=== PATIENT | male | born 1995 | race Caucasian/White ===

== ENCOUNTER → 2016-12-09 | Outpatient (CLI) | payer MEDICARE, OTHER ==
[2016-12-09 10:04] LABS: Hemoglobin A1C 5.5 % (4.2-6.1)
[2016-12-09 10:16] LABS: ALT 59 U/L (21-72); AST 34 U/L (17-59); Alkaline Phosphatase 74 U/L (38-126); Blood Urea Nitrogen 20 mg/dL (9-20); Calcium 9.7 mg/dL (8.4-10.2); Carbon Dioxide 24 mmol/L (22-30); Cholesterol 196 mg/dL (<200); Glucose 96 mg/dL (74-99); HDL Cholesterol 42 mg/dL (40-60); Non-African American GFR(MDRD) >60 (>60 ml/min/1.73 sqM); Potassium 4.5 mmol/L (3.5-5.1); Sodium 141 mmol/L (137-145); Total Bilirubin 0.4 mg/dL (0.2-1.3); Total Protein 7.5 g/dL (6.3-8.2)
[2016-12-09 10:17] LABS: Anion Gap 13 mmol/L; Chloride 104 mmol/L (98-107)
== END | disposition home or self-care (01) ==
LOC: LABWHC1 08:46
PROVIDERS: ATTEND Internal Medicine
DX: E78.5 Hyperlipidemia, unspecified (principal); Z13.1 Encounter for screening for diabetes mellitus
CPT/HCPCS: 36415; 80053; 80061; 83036

== ENCOUNTER → 2018-12-17 | Outpatient (CLI) | payer MEDICARE, OTHER ==
[2018-12-17 19:21] LABS: ALT 37 U/L (10-49); AST 26 U/L (14-35); African American GFR (CKD) 109.1 (60.0-200.0); Alkaline Phosphatase 77 U/L (41-126); BUN/Creat Ratio 18.18 Ratio (12.00-20.00); Calcium 9.5 mg/dL (8.7-10.3); Carbon Dioxide 24.2 mmol/L (21.6-31.8); Chloride 107 mmol/L (96-109); Glucose 93 mg/dL (70-110); Potassium 4.4 mmol/L (3.5-5.5); Sodium 139 mmol/L (135-145); Total Bilirubin 0.3 mg/dL (0.2-1.2); Total Protein 6.6 g/dL (6.2-8.2)
[2018-12-17 19:22] LABS: Cholesterol 325 mg/dL (0-200)
[2018-12-17 21:38] LABS: Hemoglobin A1C 5.5 % (4.0-6.0)
== END | disposition home or self-care (01) ==
LOC: LABWHC1 12:25
PROVIDERS: ATTEND Internal Medicine
DX: E78.5 Hyperlipidemia, unspecified (principal); E66.9 Obesity, unspecified; Z13.1 Encounter for screening for diabetes mellitus
CPT/HCPCS: 36415; 80053; 80061; 83036; 83721

== ENCOUNTER 2020-04-01 18:58 | Emergency (ER) | payer OTHER, MEDICARE ==
[2020-04-01 19:06] VITALS: BP 135/80; PULSE 83; RESP 18; TEMP 97.7
--- NOTE | 2020-04-01 19:34 | ED ---
General Adult HPI - General Chief complaint: Abdominal Pain Stated complaint: Abd Pain Time Seen by Provider: 04/01/20 19:10 Source: patient, RN notes reviewed, old records reviewed Mode of arrival: ambulatory Limitations: no limitations - History of Present Illness Initial comments: 25-year-old male patient with a history of mild autism to ED for evaluation. 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 Patient reports that today he was bringing a large amount shopping carts back to the receptacle region. In particular he reports that he was pushing them with his anterior abdomen at times. Patient was that he is having some localized discomfort where he was pushing the cart ea rlier today. However he is currently in no acute pain right now. He reports the pain resolved prior to my evaluation. He denies any nausea, vomiting or diarrhea. Systemic: Pt denies fatigue, fever/chills, rash. Pt denies weakness, night sweats, weight loss. Neuro: Pt denies headache, visual disturbances, syncope or pre-syncope. HEENT: Pt denies ocular discharge or irritation, otalgia, rhinorrhea, pharyngitis or notable lymphadenopathy. Cardiopulmonary: Pt denies chest pain, SOB, heart palpitations, dyspnea on exertion. Abdominal/GI: Pt denies abdominal pain, n/v/d. : Pt denies dysuria, burning w/ urination, frequency/urgency. Denies new onset urinary or bowel incontinence. MSK: Pt denies myalgia, loss of strength or function in extremities. Neuro: Pt denies new onset weakness, paresthesias. - Related Data Allergies Allergy/AdvReac Type Severity Reaction Status Date / Time No Known Allergies Allergy Verified 04/01/20 19:06 Review of Systems ROS Statement: Those systems with pertinent positive or pertinent negative responses have been documented in the HPI. ROS Other: All systems not noted in ROS Statement are negative. Past Medical History Past Medical History: Hypertension Additional Past Medical History / Comment(s): autism History of Any Multi-Drug Resistant Organisms: None Reported Past Surgical History: Ear Surgery Past Psychological History: ADD/ADHD, Anxiety, Depression Smoking Status: Current every day smoker Past Alcohol Use History: None Reported Past Drug Use History: None Reported General Exam - General Exam Comments Initial Comments: Constitutional: NAD, AOX3, Pt has pleasant affect. HEENT: NC/AT, trachea midline, neck supple, no lymphadenopathy. External ears appear normal, without discharge. Mucous membranes moist. Eyes PERRLA, EOM intact. There is no scleral icterus. No pallor noted. Cardiopulmonary: RRR, no murmurs, rubs or gallops, no JVD noted. Lungs CTAB in anterior and posterior thompson. No peripheral edema. Abdominal exam: Abdomen soft and non-distended. Abdomen non-tender to palpation in all 4 quadrants. Bowel sounds active in LLQ. No hepatosplenomegaly. No ecchymosis Neuro: CN II-XII grossly intact. No nuchal rigidity. MSK: Full active ROM in upper and lower extremities, 5/5 stregnth. Limitations: no limitations Course Vital Signs 04/01/20 19:02 Temperature 97.7 F Pulse Rate 83 Respiratory 18 Rate Blood Pressure 135/80 O2 Sat by Pulse 99 Oximetry Medical Decision Making - Medical Decision Making 25-year-old male patient ED for abdominal pain after pushing grocery carts. He is currently in no acute distress. Is denying any acute complaint. Abdomen is soft and nontender without any ecchymoses. KUB is negative for acute process. Patient re-evaluated and is in no pain with no complaints. Patient will be discharged with outpatient follow-up with his primary care provider and will return to ED if his pain returns. Case discussed with Dr. Ny. Disposition Clinical Impression: Abdominal pain Disposition: HOME SELF-CARE Condition: Stable Instructions (If sedation given, give patient instructions): Abdominal Pain (ED) Additional Instructions: follow up with PCP tomorrow. Return to ED with any worsening symptoms. Is patient prescribed a controlled substance at d/c from ED?: No Referrals: Moe Encarnacion MD [Primary Care Provider] - 1-2 days
--- NOTE | 2020-04-01 20:02 | XR ---
EXAMINATION TYPE: XR KUB DATE OF EXAM: 04/01/2020 COMPARISON: NONE HISTORY: Abdominal pain TECHNIQUE: 2 views upright FINDINGS: There is no sign of intestinal obstruction or pneumoperitoneum. Fecal pattern is normal. Joanna ng bases are clear. There are no pathologic calcifications. Bony structures are intact. IMPRESSION: Nonacute abdomen.
== END 2020-04-01 20:18 | disposition home or self-care (01) ==
LOC: EC 18:58
DX: R10.9 Unspecified abdominal pain (principal); F17.200 Nicotine dependence, unspecified, uncomplicated
CPT/HCPCS: 74018; 99284

== ENCOUNTER → 2021-07-19 | Outpatient (CLI) | payer MEDICARE, OTHER ==
--- NOTE | 2021-07-19 13:33 | XR ---
EXAMINATION TYPE: XR lumbar spine 2 or 3V DATE OF EXAM: 07/19/2021 CLINICAL HISTORY: Low back pain TECHNIQUE: Frontal and lateral images of the lumbar spine are obtained. COMPARISON: None FINDINGS: There are 5 lumbar type vertebral bodies identified. The lumbar spine shows straightened alignment without evidence of acute fracture or dislocation. Vertebral body heights and disk space he ights are within normal limits. The overlying soft tissue appears unremarkable. IMPRESSION: As above.
--- NOTE | 2021-07-19 13:48 | XR ---
EXAMINATION TYPE: XR Hip Bilateral and AP pelvis DATE OF EXAM: 07/19/2021 COMPARISON: NONE HISTORY: M25.551 TECHNIQUE: A single AP view of the pelvis is obtained. Two views of the bilateral hips are obtained. FINDINGS: There is no acute fracture/dislocation evident in the pelvis. The hip and sacroiliac join ts appear symmetric and unremarkable. The overlying soft tissue appears unremarkable. Two views of bilateral hips hip show no acute fracture or dislocation. No focal lytic or sclerotic l esion seen in the proximal femora. The overlying soft tissue is unremarkable. IMPRESSION: There is no acute fracture or dislocation in the pelvis or bilateral hips
== END | disposition home or self-care (01) ==
LOC: RADXRMAIN 12:45
PROVIDERS: ATTEND Internal Medicine
DX: M25.551 Pain in right hip (principal); M54.50 Low back pain, unspecified
CPT/HCPCS: 72100; 73521

== ENCOUNTER 2023-03-23 15:14 | Emergency (ER) | payer MEDICARE, OTHER ==
[2023-03-23 15:22] VITALS: TEMP 98.9
[2023-03-23] MEDS ORDERED: FAMOTIDINE 20 MG/2 ML VIAL IV STA (15:31)
[2023-03-23] MEDS ORDERED: SODIUM CHLORIDE 0.9% 1,000 ML IV ONE (15:31)
[2023-03-23] MEDS ORDERED: MAG HYDROX/AL HYDROX/SIMETH 30 ML, HYOSCYAMINE ELIXIR 10 ML, LIDOCAINE VISCOUS 2% 10 ML PO STA ×3 (15:31)
--- NOTE | 2023-03-23 15:48 | ED ---
General Adult HPI - General Chief complaint: Abdominal Pain Stated complaint: abd pain Time Seen by Provider: 03/23/23 15:22 Source: patient, RN notes reviewed Mode of arrival: ambulatory Limitations: no limitations - History of Present Illness Initial comments: 28-year-old male with a past medical history significant for autism presents the emergency department with a chief complaint of epigastric pain. Patient reports that he had a Burrito from [employer] at approximately 10 AM. He reports that the burning sensation developed in his epigastric area. She is also complaining of accompanying symptoms of nausea. Denies any vomiting, fev ers, melena, hematochezia. Denies recent alcohol use. Denies history of appendectomy or cholecystectomy. Patient was seen at urgent care prior to arrival recommended he come to the ED for further evaluation. - Related Data Previous Rx's Medication Instructions Recorded Dicyclomine [Bentyl] 20 mg PO TID #30 tablet 03/23/23 Allergies Allergy/AdvReac Type Severity Reaction Status Date / Time No Known Allergies Allergy Verified 03/23/23 15:19 Review of Systems ROS Statement: Those systems with pertinent positive or pertinent negative responses have been documented in the HPI. ROS Other: All systems not noted in ROS Statement are negative. Past Medical History Past Medical History: Hypertension Additional Past Medical History / Comment(s): autism History of Any Multi-Drug Resistant Organisms: None Reported Past Surgical History: Ear Surgery Past Psychological History: ADD/ADHD, Anxiety, Depression Smoking Status: Current every day smoker Past Alcohol Use History: None Reported Past Drug Use History: None Reported General Exam - General Exam Comments Initial Comments: General: Alert, in no acute distress Head: atraumatic normocephalic. Eyes PERRL, EOMI intact, mucous membranes moist Respiratory: Lungs clear to auscultation bilaterally Cardiovascular: Heart rate regular rate and rhythm Abdominal: Soft without guarding or rebound, mild epigastric tenderness. Gutierrez's sign positive. Extremities: Normal inspection with full range of motion and normal capillary refill Neuroogic: alert and oriented 3, CN II-XII intact, able to ambulate with steady gait Skin: warm dry and intact with normal color Limitations: no limitations Course Vital Signs 03/23/23 03/23/23 03/23/23 15:15 16:42 17:56 Temperature 98.9 F 98.9 F Pulse Rate 85 74 73 Respiratory 18 20 18 Rate Blood Pressure 144/92 145/96 129/84 O2 Sat by Pulse 98 98 98 Oximetry - Reevaluation(s) Reevaluation #1: 03/23/23 16:31 Should reevaluated. Patient reports pain is worse after the ultrasound. Additional labs ordered. Medical Decision Making - Medical Decision Making Was pt. sent in by a medical professional or institution (, KRISTA, DEPUTY COURT CLERK, urgent care, hospital, or [facility]...) When possible be specific @ -[No] Did you speak to anyone other than the patient for history (EMS, parent, family, police, friend...)? What history was obtained from this source @ -Mother and Father Did you review nursing and triage notes (agree or disagree)? Why? @ -[I reviewed and agree with nursing and triage notes Were old charts reviewed (outside hosp., previous admission, EMS record, old EKG, old radiological studies, urgent care reports/EKG's, [facility] records)? Report findings @ -[No old charts were reviewed] Differential Diagnosis (chest pain, altered mental status, abdominal pain women, abdominal pain men, vaginal bleeding, weakness, fever, dyspnea, syncope, headache, dizziness, GI bleed, back pain, seizure, CVA, palpatations, mental health, musculoskeletal)? @ -[not applicable] EKG interpreted by me (3pts min.). @ -[As above] X-rays interpreted by me (1pt min.). @ -[None done] CT interpreted by me (1pt min.). @ -[None done] U/S interpreted by me (1pt. min.). @ -[None done] What testing was considered but not performed or refused? (CT, X-rays, U/S, labs)? Why? @ -CTs were considered however patient laboratory studies unremarkable What meds were considered but not given or refused? Why? @ -[None] Did you discuss the management of the patient with other professionals (professionals i.e. KRISTA Lozada, DEPUTY COURT CLERK, lab, RT, psych nurse, manager social responsibility, terrazzo tile setter, teacher, adult parole officer, returned case inspector)? Give summary @ -[No] Was smoking cessation discussed for >3mins.? @ -[No] Was critical care preformed (if so, how long)? @ -[No] Were there social determinants of health that impacted care today? How? (Homelessness, low income, unemployed, alcoholism, drug addiction, transportation, low edu. Level, literacy, decrease access to med. care, residential, rehab)? @ -[No] Was there de-escalation of care discussed even if they declined (Discuss DNR or withdrawal of care, Hospice)? DNR status @ -[No] What co-morbidities impacted this encounter? (DM, HTN, Smoking, COPD, CAD, Cancer, CVA, ARF, Chemo, Hep., AIDS, mental health diagnosis, sleep apnea, morbid obesity)? @ -[None] Was patient admitted / discharged? Hospital course, mention meds given and route, prescriptions, significant lab abnormalities, going to OR and other pertinent info. @ -Discharged. This is a 28-year-old female who presents the emergency department with epigastric pain. Patient mother is to physical exam performed on the ED. Rate regular rate and rhythm, lungs clear to auscultation bilaterally abdomen is soft with mild epigastric tenderness, positive Gutierrez sign. Patient provided Toradol, Zofran, GI cocktail. 1 L IV fluids with symptomatic improvement. She had laboratory studies and imaging performed which were unremarkable. Discussed results in detail with the patient verbalized understanding of questions were addressed. Return precautions discussed at length. Patient provided Zofran and Bentyl upon discharge. Return precautions discussed at length. Patient discharged in stable condition. Case discussed with RANDOLPH Paul who agrees with plan of care Undiagnosed new problem with uncertain prognosis? @ -[No] Drug Therapy requiring intensive monitoring for toxicity (Heparin, Nitro, Insulin, Cardizem)? @ -[No] Were any procedures done? @ -[No] Diagnosis/symptom? @ -Epigastric pain Acute, or Chronic, or Acute on Chronic? @ -Acute Uncomplicated (without systemic symptoms) or Complicated (systemic symptoms)? @ -Uncomplicated Side effects of treatment? @ -[No] Exacerbation, Progression, or Severe Exacerbation? @ -[No] Poses a threat to life or bodily function? How? (Chest pain, USA, VT, pneumonia, PE, COPD, DKA, ARF, appy, cholecystitis, CVA, Diverticulitis, Homicidal, Suicidal, threat to staff... and all critical care pts) @ -Low likelihood - Lab Data Result diagrams: 03/23/23 15:32 03/23/23 15:32 Lab Results 03/23/23 03/23/23 Range/Units 15:32 15:32 WBC 6.9 (3.8-10.6) k/uL RBC 4.97 (4.30-5.90) m/uL Hgb 14.1 (13.0-17.5) gm/dL Hct 42.6 (39.0-53.0) % MCV 85.7 (80.0-100.0) fL MCH 28.4 (25.0-35.0) pg MCHC 33.2 (31.0-37.0) g/dL RDW 12.7 (11.5-15.5) % Plt Count 260 (150-450) k/uL MPV 7.7 Neutrophils % 59 % Lymphocytes % 30 % Monocytes % 8 % Eosinophils % 1 % Basophils % 1 % Neutrophils # 4.0 (1.3-7.7) k/uL Lymphocytes # 2.1 (1.0-4.8) k/uL Monocytes # 0.5 (0-1.0) k/uL Eosinophils # 0.1 (0-0.7) k/uL Basophils # 0.1 (0-0.2) k/uL Sodium 137 (137-145) mmol/L Potassium 4.3 (3.5-5.1) mmol/L Chloride 104 (98-107) mmol/L Carbon Dioxide 23 (22-30) mmol/L Anion Gap 10 mmol/L BUN 14 (9-20) mg/dL Creatinine 1.16 (0.66-1.25) mg/dL Est GFR (CKD-EPI)AfAm >90 (>60 ml/min/1.73 sqM) Est GFR (CKD-EPI)NonAf 86 (>60 ml/min/1.73 sqM) Glucose 91 (74-99) mg/dL Calcium 9.3 (8.4-10.2) mg/dL Total Bilirubin 0.4 (0.2-1.3) mg/dL AST 26 (17-59) U/L ALT 27 (4-49) U/L Alkaline Phosphatase 65 (38-126) U/L Total Protein 6.9 (6.3-8.2) g/dL Albumin 4.1 (3.5-5.0) g/dL Lipase 63 (23-300) U/L Disposition Clinical Impression: Epigastric pain Disposition: HOME SELF-CARE Condition: Stable Additional Instructions: please monitor your symptoms closely. Please return to the nearest emergency department if symptoms worsen or persist Prescriptions: Dicyclomine [Bentyl] 20 mg PO TID #30 tablet Is patient prescribed a controlled substance at d/c from ED?: No Referrals: Akhil White MD [Primary Care Provider] - 1-2 days Time of Disposition: 17:39
[2023-03-23 16:09] LABS: Basophils # (A) 0.1 k/uL (0-0.2); Basophils % (A) 1 %; Eosinophils # (A) 0.1 k/uL (0-0.7); Eosinophils % (A) 1 %; HCT 42.6 % (39.0-53.0); HGB 14.1 gm/dL (13.0-17.5); Lymphocytes # (A) 2.1 k/uL (1.0-4.8); Lymphocytes % (A) 30 %; MCH 28.4 pg (25.0-35.0); MCHC 33.2 g/dL (31.0-37.0); MCV 85.7 fL (80.0-100.0); Mean Platelet Volume 7.7; Monocytes # (A) 0.5 k/uL (0-1.0); Monocytes % (A) 8 %; Neutrophils % (A) 59 %; Platelet Count 260 k/uL (150-450); RBC 4.97 m/uL (4.30-5.90); RDW 12.7 % (11.5-15.5); WBC 6.9 k/uL (3.8-10.6)
--- NOTE | 2023-03-23 16:25 | US ---
EXAMINATION TYPE: US gallbladder DATE OF EXAM: 03/23/2023 COMPARISON: NONE CLINICAL INDICATION: Male, 28 years old with history of RUQ PAIN; pain and nausea limited due to body habitus TECHNIQUE: Multiple sonographic images of the right upper quadrant are obtained. FINDINGS: EXAM MEASUREMENTS: Liver Length: 17 cm Gallbladder Wall: .3 cm CBD: 0.4 cm Right Kidney: 10.7 x 3.9 x 4.2 cm Pancreas: Obscured by bowel gas Liver: Increased attenuation Gallbladder: No stones seen Evidence for sonographic Gutierrez's sign: No CBD: wnl Right Kidney: No hydronephrosis or masses seen IMPRESSION: No evidence for acute right upper quadrant process.
[2023-03-23 16:26] LABS: ALT 27 U/L (4-49); AST 26 U/L (17-59); African American GFR (CKD) >90 (>60 ml/min/1.73 sqM); Albumin 4.1 g/dL (3.5-5.0); Alkaline Phosphatase 65 U/L (38-126); Anion Gap 10 mmol/L; Blood Urea Nitrogen 14 mg/dL (9-20); Calcium 9.3 mg/dL (8.4-10.2); Carbon Dioxide 23 mmol/L (22-30); Chloride 104 mmol/L (98-107); Glucose 91 mg/dL (74-99); Lipase 63 U/L (23-300); Non-African American GFR(CKD) 86 (>60 ml/min/1.73 sqM); Potassium 4.3 mmol/L (3.5-5.1); Sodium 137 mmol/L (137-145); Total Bilirubin 0.4 mg/dL (0.2-1.3); Total Protein 6.9 g/dL (6.3-8.2)
[2023-03-23] MEDS ORDERED: KETOROLAC 15 MG/ML 1 ML VIAL IVP STA (16:31)
[2023-03-23] MEDS ORDERED: ONDANSETRON 4 MG ODT STARTER PACK 2 TAB BTL PO STA (17:39)
[2023-03-23 18:23] VITALS: BP 129/84; PULSE 73; RESP 18
== END 2023-03-23 17:59 | disposition home or self-care (01) ==
LOC: EC 15:14
DX: R10.13 Epigastric pain (principal); I10 Essential (primary) hypertension; F17.200 Nicotine dependence, unspecified, uncomplicated; Z86.59 Personal history of other mental and behavioral disorders
CPT/HCPCS: 36415; 80053; 83690; 85025; 76705; 99284; 96374; 96375; 96361; J3490; J1885; S0119

== ENCOUNTER → 2024-09-15 | Outpatient (CLI) | payer MEDICARE, OTHER ==
[2024-09-15 16:02] VITALS: BP 135/91; PULSE 79; RESP 16; TEMP 98.2
--- NOTE | 2024-09-15 16:20 | P.SLEEP ---
History of Present Illness DATE: 09/15/2024 CONSULTATION/NEW PATIENT EVALUATION HISTORY OF PRESENT ILLNESS/SLEEP-WAKE EVALUATION: 29-year-old gentleman had b een evaluated in the sleep center for possible obstructive sleep apnea hypopnea syndrome. SLEEP SCHEDULE: Usually sleep schedule from 10 PM to 7 AM 7 days a week. FALLING ASLEEP: Sometimes patient has difficulties with falling asleep. DURING SLEEP: Patient has loud snoring, witnessed episodes of stop breathing during the sleep. Patient wakes up from sleep 3 times with nocturia. Positive history of choking, grinding teeth, dry mouth, panic attacks, heartburn, restless leg symptoms, sweating. No history of hypnogogical hallucinations, sleep paralysis, or cataplexy. DURING THE DAY/WAKE STATE: In the morning patient wake up tired, has difficulties to pay attention, falling asleep during the day. Positive history of irritability, depression and anxiety. Marrero sleepiness scale is 20. Patient takes up to 3 naps during the day. PAST MEDICAL HISTORY: ADHD, hyperlipidemia, acid reflux. PAST SURGICAL HISTORY: Ear tube insertion. MEDICATIONS: Please see below. SOCIAL HISTORY: Please see below. FAMILY HISTORY: Please see below. REVIEW OF SYSTEMS: Loud snoring, multiple awakenings from sleep, sleepiness during the day. No fevers. No double vision. No recent chest pain. No shortness of breath. No abdominal pain. No bleeding episodes. No blood in urine. No seizure episodes. PHYSICAL EXAMINATION: GENERAL: A pleasant patient without any distress. VITAL SIGNS: Have been reviewed, please see below, weight 393 pounds, BMI 53. HEENT: PERRLA, EOMI. Evaluation of oropharynx showed tongue protrudes midline, low position of soft palate Mallampati 4. NECK: Supple. No JVD. Thyroid is not palpable. 20-1/4 inches in circumference. LUNGS: Clear to percussion and to auscultation. Good air exchange. No wheezing or rhonchi. HEART: S1, S2 regular. No murmurs, gallops or rubs. ABDOMEN: Soft and nontender. Bowel sounds are present. No organomegaly appreciated. EXTREMITIES: No clubbing or cyanosis. NURSE TECHNICIAN: Awake, alert, and oriented x3. Cranial nerves 2 to 7 intact. There is no fasciculation or atrophy noted. No focal deficits observed. ASSESSMENT: 1. Loud snoring, witnessed episodes of stop breathing during the sleep, extremely low position of soft palate, wide neck 20-1/4 inches in circumference, extremely high sleepiness with Marrero Sleepiness Scale 20. Obstructive sleep apnea hypopnea syndrome. 2. Morbid obesity, BMI 53. 3. History of ADHD. 4. Hyperlipidemia. 5 acid reflux. 6 . History of ear tube insertion many years ago. PLAN: 1. Home sleep apnea test Polysomnography for evaluation of patient's breathing during sleep. 2. CPAP/BiPAP titration if sleep study confirms obstructive sleep apnea- hypopnea syndrome. 3. Preferable position during sleep on the side. 4. No driving if patient feels any sleepiness. Patient is aware of civil and criminal liability for unsafe driving. 5. Sleep hygiene with regular sleep time for at least 7.5-8 hours. 6. Watching and losing weight. Thank you very much for referring this patient for consultation. Sincerely, Alexandre Goldman MD, PhD, FAASM. Diplomat of [employer], Sleep Medicine Board by [employer] [facility] [place] cc: Akhil White MD Past Medical History Past Medical History: Hyperlipidemia, Hypertension Additional Past Medical History / Comment(s): autism; ADHD, AND ODD History of Any Multi-Drug Resistant Organisms: None Reported Past Surgical History: Ear Surgery Past Anesthesia/Blood Transfusion Reactions: No Reported Reaction Past Psychological History: ADD/ADHD, Anxiety, Depression Additional Psychological History / Comment(s): ODD Smoking Status: Current every day smoker Past Alcohol Use History: None Reported Past Drug Use History: None Reported Medications and Allergies Home Medications Medication Instructions Recorded Confirmed Type Dicyclomine [Bentyl] 20 mg PO TID #30 tablet 03/23/23 Rx ARIPiprazole [Abilify] 5 mg PO DAILY 09/15/24 09/15/24 History Aspirin [Jewell Aspirin EC] 81 mg PO DAILY 09/15/24 09/15/24 History Atorvastatin [Lipitor] 80 mg PO DAILY 09/15/24 09/15/24 History Dexmethylphenidate HCl [Focalin Xr] 30 mg PO QAM 09/15/24 09/15/24 History Dextromethorphan HBr/Bupropion 1 each PO DAILY 09/15/24 09/15/24 History [Auvelity ER 45-105 mg Tablet] Loratadine [Claritin] 10 mg PO DAILY 09/15/24 09/15/24 History Pantoprazole [Protonix] 40 mg PO DAILY 09/15/24 09/15/24 History cloNIDine 0.2 MG/24HR PATCH 0.2 mg PO DAILY 09/15/24 09/15/24 History [Catapres-TTS] hydrOXYzine pamoate [Vistaril] 25 mg PO BID 09/15/24 09/15/24 History traZODone HCL 100 mg PO DAILY 09/15/24 09/15/24 History Allergies Allergy/AdvReac Type Severity Reaction Status Date / Time No Known Allergies Allergy Verified 03/23/23 15:19 Physical Exam Vitals: Vital Signs Temp Pulse Resp BP Pulse Ox 09/15/24 15:59 98.2 F 79 16 135/91 96 Intake and Output 09/15/24 09/15/24 09/15/24 06:59 14:59 22:59 Other: Weight 178.262 kg Sleep Note - Sleep Data ESS Total: 21 - Sleep Note Sleep Note: Temperature: 98.2 F Pulse Rate: 79 Respiratory Rate: 16 Blood Pressure: 135/91 SpO2: 96 Height: 6 ft 1 in Weight: 178.262 kg BMI: Neck Circumference: 20.2
== END ==
LOC: 3 N SLEEP 14:39
PROVIDERS: ATTEND Internal Medicine
DX: G47.33 Obstructive sleep apnea (adult) (pediatric) (principal); E66.9 Obesity, unspecified; E78.5 Hyperlipidemia, unspecified; K21.9 Gastro-esophageal reflux disease without esophagitis; Z86.59 Personal history of other mental and behavioral disorders; Z68.43 Body mass index [BMI] 50.0-59.9, adult; Z96.22 Myringotomy tube(s) status
CPT/HCPCS: 99211

== ENCOUNTER 2024-11-29 19:15 | Outpatient (CLI) | payer MEDICARE, OTHER ==
--- NOTE | 2024-12-01 17:20 | P.PCN ---
Description of Procedure: POLYSOMNOGRAPHY REPORT PROCEDURE(S)/DATE(S): Polysomnography 11/29/2024 CLINICAL: Patient has been seen in the sleep center for evaluation of obstructive sleep apnea-hypopnea syndrome. Please see my consultation. Sleep study has been done for evaluation of patient breathing during the sleep. PROCEDURE: The standard montage for clinical polysomnography included the electroencephalogram, the electrooculogram, the mentalis surface electromyography and Lead II cardiography. The respiratory battery consisted of measurements of nasal/buccal air flow, pressure transducer measurements from nose, thoracic and/or abdominal effort and intercostal surface electromyography. Video monitoring has been done to check for any parasomnia events. Nocturnal oxyhemoglobin saturations were obtained by finger oximetry. Step-you titration with positive airway pressure was utilized to control the respiratory events, if necessary. RESULTS: During the diagnostic sleep study sleep efficiency was normal 91.8%. Latency to sleep onset was normal at 13.0 min. Sleep architecture showed stage NI was normal 6.4%, Delta sleep was in good range 17.8%, REM sleep was short 13.3%. Respiratory channel showed 88 obstructive apneas, 19 mixed apneas, 9 central apneas, 343 hypopneas with lowest oxygen level 57%. Total apnea hypopnea index was 73.2. Heart rate was in the range between 68 and 79, average 74. EMG showed 0 periodic limb movements per hour. IMPRESSIONS: 1. Extremely severe obstructive sleep apnea hypopnea syndrome with severe oxygen desaturation. 2. No significant periodic limb movements have been documented. Please see other impressions from consultation PLAN: 1. The patient will have PAP titration for correction of respiratory abnormalities during the sleep. 2. Losing weight program. 3. Sleep hygiene with regular time in bed for at least 7-1/2 hours. 4. No driving if feeling sleepiness. Thank you very much for allowing me to participate in the management of your patient. Sincerely, Alexandre Goldman MD, PhD, FAASM. Diplomat of [employer], Sleep Medicine Board by [employer] [facility] [place] cc: Cindy Ferrari MD
== END 2024-11-30 06:30 | disposition home or self-care (01) ==
LOC: 3 N SLEEP 19:15
PROVIDERS: ATTEND Internal Medicine
DX: G47.33 Obstructive sleep apnea (adult) (pediatric) (principal)
CPT/HCPCS: 95810